=== PATIENT | male | born 2000 | race Caucasian/White ===

== ENCOUNTER 2020-10-17 16:02 | Emergency (ER) | payer BC ==
[2020-10-17] MEDS: Bupivacaine 0.25% 30 ML SDV INJECT PRN (16:20)
--- NOTE | 2020-10-17 16:31 | EDM.PDOC ---
ED HPI GENERAL MEDICAL PROBLEM - General Chief Complaint: ENT Problem Stated Complaint: TOOTH PAIN Time Seen by Provider: 10/17/20 16:17 Source of Information: Reports: Patient - History of Present Illness INITIAL COMMENTS - FREE TEXT/NARRATIVE: Mariusz is a 19 y/o male who comes to the ER with complaints of toothpain. He is been having ongoing pain with his left lower wisdom tooth for about 3 years and has not gotten in to the dentist. He tried to call several dentists today, but was placed on a waiting list due to the pandemic. He also has a decayed left upper molar and that is also hurting. No fevers. He took Tylenol this AM and then Naprosyn this afternoon with really no relief. Left Lower Tooth/Teeth Pain Score (Numeric/FACES): 8 - Related Data Allergies Allergy/AdvReac Type Severity Reaction Status Date / Time No Known Allergies Allergy Verified 10/17/20 16:18 Home Meds: Home Meds Amoxicillin 500 mg PO TID 10 Days #30 tab 10/17/20 [Rx] Butalbit/Acetamin/Caff/Codeine [Fioricet-Cod [id number] Cap] 1 - 2 each PO Q4H PRN #30 capsule 10/17/20 [Rx] Past Medical History - Past Surgical History Other HEENT Surgeries/Procedures: dental caries Review of Systems - Review of Systems Review Of Systems: See Below Constitutional: Reports: No Symptoms Eyes: Reports: No Symptoms Ears: Reports: No Symptoms Nose: Reports: No Symptoms Mouth/Throat: Reports: Other (Tooth Pain) Respiratory: Reports: No Symptoms Cardiovascular: Reports: No Symptoms GI/Abdominal: Reports: No Symptoms Genitourinary: Reports: No Symptoms Musculoskeletal: Reports: No Symptoms Skin: Reports: No Symptoms Neurological: Reports: No Symptoms Psychiatric: Reports: No Symptoms ED EXAM, GENERAL - Physical Exam Exam: See Below Exam Limited By: No Limitations General Appearance: Alert, WD/WN, No Apparent Distress (Adult Male) Ears: Hearing Grossly Normal Nose: Normal Inspection Throat/Mouth: Normal Lips, Other (Tooth #17 is tender and erupting from gum, appears tightly situated. Tooth #16 is broken and decayed. No abscess noted.) Respiratory/Chest: No Respiratory Distress GI/Abdominal: Soft (Male) Exam: Deferred Rectal (Males) Exam: Deferred Extremities: Normal Inspection, Normal Capillary Refill Neurological: Alert, Oriented, CN II-XII Intact, Normal Cognition, Normal Gait Psychiatric: Normal Affect, Normal Mood Skin Exam: Warm, Dry, Intact, Normal Color Lymphatic: No Adenopathy Course - Vital Signs Text/Narrative:: 1617 Patient was seen by the OIL PROCESSING TECHNICIAN. A dental block was done. See Procedure Note. PROCEDURE NOTE: DENTAL BLOCK Consent for operation or procedure: Risks and benefits discussed with patient and consent obtained. Risks include facial paralysis, hematoma, and trismus (spasm of the jaw muscle). Benefits include pain control. Bupivacaine 0.25%- 3 ml The distribution of the inferior alveolar nerve was identified. Bupivacaine was injected into that region. A short time later adequate analgesia was obtained. Estimated Blood Loss: minimal Complications: The patient tolerated the procedure well without complications. 1640 Patient was observed and had almost complete resolution of pain. Questions were answered. He was given discharge instructions left the ER in stable condition. Last Recorded V/S: Last Vital Signs Temp 36.8 C 10/17/20 16:08 Pulse 102 H 10/17/20 16:08 Resp 16 10/17/20 16:08 BP 141/100 H 10/17/20 16:08 Pulse Ox 99 10/17/20 16:08 - Orders/Labs/Meds Orders: Active Orders 24 hr Category Date Time Status Bupivacaine 0.25% [Marcaine 0.25%] Med 10/17/20 16:17 Ordered 30 ml INJECT ASDIRECTED PRN Medication Orders Bupivacaine HCl (Marcaine 0.25%) 30 ml INJECT ASDIRECTED PRN PRN Reason: Other Meds: Medications Generic Name Dose Route Start Last Admin Trade Name Freq PRN Reason Stop Dose Admin Bupivacaine HCl 30 ml 10/17/20 16:17 Marcaine 0.25% INJECT ASDIRECTED PRN Other Departure - Departure Time of Disposition: 16:40 Disposition: Home, Self-Care 01 Preliminary Cause of *Q: Cardiac Arrest Clinical Impression: Pain, dental, Dental caries - Discharge Information Prescriptions: Amoxicillin 500 mg PO TID 10 Days #30 tab Butalbit/Acetamin/Caff/Codeine [Fioricet-Cod [id number] Cap] 1 - 2 each PO Q4H PRN #30 capsule PRN Reason: Pain Instructions: Acute Pain, Adult Forms: ED Department Discharge Sepsis Event Note (ED) - Evaluation Sepsis Screening Result: No Definite Risk - Focused Exam Vital Signs: Vital Signs Temp Pulse Resp BP Pulse Ox 10/17/20 16:08 36.8 C 102 H 16 141/100 H 99 - My Orders Last 24 Hours: My Active Orders 10/17/20 16:17 Bupivacaine 0.25% [Marcaine 0.25%] 30 ml INJECT ASDIRECTED PRN - Assessment/Plan Last 24 Hours: My Active Orders 10/17/20 16:17 Bupivacaine 0.25% [Marcaine 0.25%] 30 ml INJECT ASDIRECTED PRN Assessment:: 1)Dental Pain 2)Dental Caries Plan: -Fiorcet with Codeine 2 tablets oral very 4-6 hours as needed for pain #30 (Rx) -Continue to use the Naprosyn 500mg 2x daily. -Amoxicillin 500mg oral 3x daily for 10 days #30 (Rx) -Apply ice or heat to your cheek region for comfort -Eat soft foods that aren't extremely hot or cold -Continue to attempt to establish care with a dentist. You will need to get into one to have your tooth extracted. -Return to the ER if you have any further concerns or pain returns
== END 2020-10-17 17:00 | disposition home or self-care (01) ==
LOC: VM.ED 16:02
DX: K02.9 Dental caries, unspecified (principal)
CPT/HCPCS: 64400; 99282-25; J3490

== ENCOUNTER 2021-03-15 01:02 | Emergency (ER) | payer BC, MEDICAID ==
[2021-03-15] MEDS ORDERED: Diphtheria,Pertussis(Acell),Tetanus Vaccine 0.5 ML Syringe IM ONE (01:17)
[2021-03-15] MEDS ORDERED: Lidocaine 1% 30 ML SDV INJECT ONE (01:17)
[2021-03-15] MEDS ORDERED: Ondansetron 4 MG Tab.DIS PO ONE (01:23)
[2021-03-15] MEDS ORDERED: Ondansetron 4 MG Tab.DIS ONE (01:34)
[2021-03-15] MEDS ORDERED: Cephalexin 500 MG Cap PO ONE (02:16)
--- NOTE | 2021-03-15 02:19 | EDM.PDOC ---
ED HPI GENERAL MEDICAL PROBLEM - General Stated Complaint: HAND STUCK IN TOILET-LACERATION Time Seen by Provider: 03/15/21 01:10 Source of Information: Reports: Patient History Limitations: Reports: No Limitations - History of Present Illness INITIAL COMMENTS - FREE TEXT/NARRATIVE: Patient comes emergency department today by ambulance from home with concerns of lacerations to his left hand. Patient nancy had a plugged toilet at home and attempted to clear the obstruction of the toilet with his left hand because the plunger was not working. There was some bodily fluids in the toilet when he initially started to try to get it unplugged. Subsequently he ended up getting his left hand stuck in the trap of the toilet. He was unable to get it out. 911 was summoned. The police fire department and ambulance arrived to assist this patient whose and was stuck in the toilet. They were unable to dislodge it. They eventually remove the toilet carried a downstairs and the mill platform supervisor broke the toilet to get his hand out of it. During the extrication process of his hand out of the toilet when they broke the toilet he sustained multiple lacerations and abrasions to his left hand. Patient is unsure of the last time he had his tetanus. He denies any paresthesias to his left hand. He denies any other injury to his arm other than abrasions and lacerations. He is able to flex and extend at all the joints of the hand. - Related Data Allergies Allergy/AdvReac Type Severity Reaction Status Date / Time No Known Allergies Allergy Verified 10/17/20 16:18 Home Meds: Home Meds Amoxicillin 500 mg PO TID 10 Days #30 tab 10/17/20 [Rx] Butalbit/Acetamin/Caff/Codeine [Fioricet-Cod [id number] Cap] 1 - 2 each PO Q4H PRN #30 capsule 10/17/20 [Rx] cephALEXin [Cephalexin] 500 mg PO QID #20 capsule 03/15/21 [Rx] Past Medical History - Past Surgical History Other HEENT Surgeries/Procedures: dental caries Review of Systems - Review of Systems Review Of Systems: Comprehensive ROS is negative, except as noted in HPI. ED EXAM, GENERAL - Physical Exam Exam: See Below Free Text/Narrative:: Injury documentation of the left hand. There is a subcutaneous laceration on the MCP joint of the left thumb that is 1.5 cm in length. On the second MCP joint dorsal aspect of the hand there is a distal to proximal 2.5 cm subcutaneous laceration. On the lateral aspect of the base of the left palm there is a 1 cm superficial laceration. On the proximal phalanx lateral aspect of the dorsal side of the th ird finger there is a C-shaped subcutaneous 1.5 cm laceration. There is also multiple abrasions that are superficial on the lateral aspect of the left wrist. There is also very superficial 2 cm distal to proximal laceration on the midpoint of the second metacarpal. There is no overt bony deformity or tenderness to any of the bones of the hand. Exam Limited By: No Limitations General Appearance: Alert, WD/WN, No Apparent Distress Respiratory/Chest: No Respiratory Distress Cardiovascular: Normal Peripheral Pulses Peripheral Pulses: 2+: Radial (L), Radial (R) Extremities: No: Normal Inspection (Please see above for specific laceration documentation. Patient is able to flex and extend and rotate at the wrist. There is no overt bony deformity. He is able to flex and extend at the IP PIP DIP and MCP joints of all the digits of the left hand. CMS is intact entirely of the left hand.) Neurological: Alert, Oriented Course - Vital Signs Last Recorded V/S: Last Vital Signs Temp 98.7 F 03/15/21 01:02 Pulse 72 03/15/21 01:02 Resp 16 03/15/21 01:02 BP 137/89 03/15/21 01:02 Pulse Ox 96 03/15/21 01:02 - Orders/Labs/Meds Meds: Medications Discontinued Medications Generic Name Dose Route Start Last Admin Trade Name Freq PRN Reason Stop Dose Admin Cephalexin 500 mg 03/15/21 02:16 03/15/21 02:20 Cephalexin 500 Mg Cap PO 03/15/21 02:17 500 mg ONETIME ONE Administration Diphtheria/Tetanus/Acell Pertussis 0.5 ml 03/15/21 01:17 03/15/21 02:15 Diphtheria,Pertussis(Acell),Tetanus Vaccine 0.5 Ml Syringe IM 03/15/21 01:18 0.5 ml .ONCE ONE Administration Lidocaine HCl 30 ml 03/15/21 01:17 03/15/21 03:13 Lidocaine 1% 30 Ml Sdv INJECT 03/15/21 01:18 30 ml ONETIME ONE Administration Ondansetron HCl 4 mg 03/15/21 01:23 03/15/21 01:20 Ondansetron 4 Mg Tab.Dis PO 03/15/21 01:24 4 mg ONETIME ONE Administration Ondansetron HCl Confirm 03/15/21 01:34 Ondansetron 4 Mg Tab.Dis Administered 03/15/21 01:35 Dose 4 mg .ROUTE .[facility] ONE - Re-Assessments/Exams Free Text/Narrative Re-Assessment/Exam: 03/15/21 03:37 Patient did become nauseous in the emergency department with a vasovagal type symptoms and vomiting. This resolved shortly after he was laid down. He was given Zofran for prophylactic nausea. The 4 lacerations to the one on the MCP joint of the thumb second finger,palm and proximal phalange E of the third finger the mid metacarpal of the second finger as well as the abrasions were cleansed with sterile saline as well as chlorhexidine. The lacerations were then anesthetized with 1% lidocaine without epinephrine. All the wounds were explored and there was no foreign material or debris. The laceration on the MCP joint of the second finger 2.5 cm was closed with single interrupted 5-0 nylon sutures with good skin approximation 5 stitches total. The laceration on the MCP joint of the thumb 1.5 cm in length was closed in the same fashion with good skin approximation with a total of 3 stitches. The 1 cm laceration at the base of the palm on the thumb side 1 cm closed in the exact same fashion with good skin approximation 2 stitches. The 1.5 cm laceration on the dorsal aspect of the proximal phalanges of the middle finger was closed in the same fashion with good skin approximation 3 stitches. The patient tolerated the procedure well. Bacitracin dressing bandage was applied. Bacitracin is applied to the abrasions as well. His tetanus immunization was updated. Following the suture placement the patient was still able to flex and extend at all the joints MCP DIP PIP and IP joints of the hand. CMS was still intact. He was given a dose of Keflex 500 mg p.o. as his hand was then contaminated water. We will put him on prophylactic Keflex 1 tablet p.o. 4 times daily for the next 5 days as well. These wounds were cleansed quite aggressively in the emergency department prior to closure. Discharge directions as below are explained to the patient he was comfortable with this plan and his questions were answered. Departure - Departure Time of Disposition: 02:16 Disposition: Home, Self-Care 01 Clinical Impression: Lacerations of multiple sites of left arm Qualifiers: Encounter type: initial encounter Qualified Code(s): S41.112A - Laceration without foreign body of left upper arm, initial encounter - Discharge Information Prescriptions: cephALEXin [Cephalexin] 500 mg PO QID #20 capsule Instructions: Laceration Care, Adult, [id number] Referrals: PCP,None [Primary Care Provider] - Forms: ED Return to Work/School Form Additional Instructions: Area where the Dermabond (Glue) is applied keep dry. The glue will peel off on its own. Do not pull it off trim the edges if it sides to peel with a finger nail clipper. The areas of sutures. cleanse twice daily with soap and water. Bacitracin bandage until healed. Watch for signs of infection. Sutures out in 10 days. Cephalexin 1 capsule 4 times a day for the next 5 days to prevent infection. First dose given in the ED and RX sent to [facility]. Abrasions cleanse daily with soap and water. Bacitracin and dressing until healed. Return to the ED if new or worsening symptoms. Follow up with PCP if any concerns. Sutures out in the clinic in 10 days. Sepsis Event Note (ED) - Focused Exam Vital Signs: Vital Signs Temp Pulse Resp BP Pulse Ox 03/15/21 01:02 98.7 F 72 16 137/89 96
== END 2021-03-15 02:29 | disposition home or self-care (01) ==
LOC: VM.ED 01:02
DX: S61.012A Laceration without foreign body of left thumb without damage to nail, initial encounter (principal); S61.412A Laceration without foreign body of left hand, initial encounter; S61.213A Laceration without foreign body of left middle finger without damage to nail, initial encounter; S60.812A Abrasion of left wrist, initial encounter; Z23 Encounter for immunization; W23.0XXA Caught, crushed, jammed, or pinched between moving objects, initial encounter
CPT/HCPCS: 12002; 90471; 90715; 99283-25; A9270-GY

== ENCOUNTER 2022-01-10 19:05 | Emergency (ER) | payer BC | END 2022-01-10 20:10 | disposition home or self-care (01) | LOC: VM.ED 19:05 | DX: S20.212A Contusion of left front wall of thorax, initial encounter (principal); Z72.0 Tobacco use; W18.09XA Striking against other object with subsequent fall, initial encounter | CPT/HCPCS: 71046; 99283; 99284-25 ==

== ENCOUNTER 2022-04-29 20:25 | Emergency (ER) | payer BC, MEDICAID | END 2022-04-29 21:36 | disposition home or self-care (01) | LOC: VM.ED 20:25 | DX: S90.121A Contusion of right lesser toe(s) without damage to nail, initial encounter (principal); F17.210 Nicotine dependence, cigarettes, uncomplicated; W22.8XXA Striking against or struck by other objects, initial encounter | CPT/HCPCS: 73660-T9; 99283 ==